=== PATIENT | male | born 1955 | race Caucasian/White ===

== ENCOUNTER 2023-01-21 13:19 | Observation (INO) | payer OTHER ==
[~2023-01-21] VITALS: Ht 182.9 cm; Wt 74.1 kg
[2023-01-21] MEDS ORDERED: FLOMAX0.4 MG PO (13:37)
[2023-01-21 14:19] LABS: BASOPHILS 0.7 % (0-2); EOSINOPHILS 0.2 % (0-6); HEMATOCRIT 48.3 % (35.0-50.0); HEMOGLOBIN 16.2 g/dL (12.0-18.0); LYMPHOCYTES 4.6 % (24-44); MCH 28.6 (27-36); MCHC 33.4 g/dl (30-36); MCV 85.6 fl (81-99); MONOCYTES 6.6 % (0-12); NEUTROPHILS 87.9 % (39-80); PLATELET COUNT 230 K/uL (140-440); RBC 5.64 M/ul (4.3-5.7)
[2023-01-21 14:19] LABS: BILIRUBIN, URINE NEGATIVE (negative); BLOOD/HGB, URINE NEGATIVE (Negative); KETONE, URINE NEGATIVE (Negative); LEUK ESTERASE, URINE NEGATIVE (negative); NITRITE, URINE NEGATIVE (negative); PH, URINE 6.5 (5-7)
[2023-01-21 14:26] LABS: BACTERIA, URINE NONE SEEN /hpf (negative); CASTS, URINE NONE SEEN \\lpf; COLLECTION TYPE, URINE CATH; CRYSTALS, URINE NONE SEEN (0-1+); EPITHELIAL CELLS, URINE 0 /lpf (0-1+); REFLEX CULTURE, URINE No (No); WHITE BLOOD CELLS, URINE 0-1 /HPF (0-5)
[2023-01-21 14:28] LABS: ALBUMIN 4.9 g/dL (3.4-5.0); ALBUMIN/GLOBULIN RATIO 1.58 (1.1-2.4); ANION GAP 12.6 (7-21); BILIRUBIN, TOTAL 0.7 ng/dL (0.2-1.0); BUN/CREATININE RATIO 22.72 (6.0-28.6); CALCIUM 9.4 mg/dL (8.5-10.1); CREATININE, SERUM 0.66 mg/dL (0.70-1.30); POTASSIUM 3.6 mmol/L (3.5-5.1)
[2023-01-21 18:52] LABS: INFLUENZA B NAA NEGATIVE (NEGATIVE); RESPIRATORY SYNCYTIAL VIR NAA NEGATIVE (NEGATIVE)
--- NOTE | 2023-01-21 21:06 | NUR ---
pt ARRIVED TO [place], BROUGHT TO FLOOR BY ED RN X2. pt ORIENTED TO ROOM AND POC FOR SHIFT DISCUSSED, QUESTIONS ANSWERED. IV SITE WNL, SALINE LOCKED BY LUCY GUTIERREZ. BED ALARM ON FOR SAFETY AND CALL LIGHT IN REACH. ADMISSION COMPLETED BY THIS RN. URINAL AND PERSONAL BELONGINGS IN REACH. 2LNC IN PLACE, OCCAS. DRY COUGH NOTED. pt REPORTS ABD PAIN AND NAUSEA, PRIMARY RN MELBA AND LUCY GUTIERREZ AWARE AND TO ASSIST. NO ADDITIONAL NEEDS OR CONCERNS VERBALIZED.
[2023-01-21 21:08] VITALS: BP 171/103
--- NOTE | 2023-01-21 21:30 | NUR ---
ASSESSMENT AND VITAL SIGNS DONE. WATER REFRESHED. CALL LIGHT WITHIN REACH. SCHEDUELED AND PRN MEDICATIONS ADMINISTERED PER ORDER, SEE MAR. NO OTHER NEEDS AT THIS TIME.
--- NOTE | 2023-01-22 00:11 | NUR ---
PATIENT RESTING IN BED WITH EYES CLOSED. RESP OBSERVED. URINAL EMPTIED. CALL LIGHT WITHIN REACH. NO OTHER NEEDS AT THIS TIME.
[2023-01-22 01:37] VITALS: BP 157/94
--- NOTE | 2023-01-22 01:50 | NUR ---
ASSESSMENT AND VITAL SIGNS DONE. PATIENT RESTING IN BED WITH EYES CLOSED. CPOX APPLIED. Pt STILL ON 2LNC. CALL LIGHT WITH IN REACH. NO OTHER NEEDS AT THIS TIME.
[2023-01-22 05:14] LABS: HEMOGLOBIN 14.4 g/dL (12.0-18.0)
[2023-01-22 05:16] LABS: BASOPHILS 0.4 % (0-2); EOSINOPHILS 0.3 % (0-6); HEMATOCRIT 44.5 % (35.0-50.0); LYMPHOCYTES 4.8 % (24-44); MCH 28.2 (27-36); MCHC 32.5 g/dl (30-36); MCV 86.9 fl (81-99); MONOCYTES 1.8 % (0-12); NEUTROPHILS 92.7 % (39-80); PLATELET COUNT 195 K/uL (140-440); RBC 5.12 M/ul (4.3-5.7); RDW 21.8 (10.5-15.0)
[2023-01-22 05:21] LABS: ANION GAP 10.1 (7-21); BUN/CREATININE RATIO 24.61 (6.0-28.6); CREATININE, SERUM 0.65 mg/dL (0.70-1.30); POTASSIUM 4.1 mmol/L (3.5-5.1)
[2023-01-22 05:24] VITALS: BP 139/91
--- NOTE | 2023-01-22 07:20 | NUR ---
RECEIVED PT REPORT FROM RN'S OLIVER. PT IS RESTING, SUPINE, IN BED, EYES CLOSED, BREATHING REGULAR, EVEN, AND NON-LABORED. CALL LIGHT IN REACH.
[2023-01-22] MEDS ORDERED: PREDNISONE20 MG PO (08:20)
[2023-01-22] MEDS ORDERED: AZITHROMYCIN500 MG PO (08:20)
[2023-01-22] MEDS ORDERED: ALBUTEROL2.5 MG/3 M INH (09:26)
[2023-01-22] MEDS ORDERED: VENTOLIN HFA18 GM INH (09:26)
[2023-01-22] MEDS ORDERED: NORVASC2.5 MG PO (09:27)
[2023-01-22] MEDS ORDERED: LOW DOSE ASPIRI81 MG PO (09:27)
[2023-01-22] MEDS ORDERED: VITAMIN C500 M4 PO (09:27)
[2023-01-22] MEDS ORDERED: CELEBREX200 MG PO (09:28)
[2023-01-22] MEDS ORDERED: BUSPIRONE HCL15 MG PO (09:28)
[2023-01-22] MEDS ORDERED: CYMBALTA60 MG PO (09:29)
[2023-01-22] MEDS ORDERED: VITAMIN B-121000 MCG PO (09:29)
[2023-01-22] MEDS ORDERED: VITAMIN D325 MCG PO (09:29)
[2023-01-22] MEDS ORDERED: PEPCID20 MG PO (09:30)
[2023-01-22] MEDS ORDERED: IRON325 M1 PO (09:30)
[2023-01-22] MEDS ORDERED: AIMOVIG AU70 MG/1 ML SUB-Q (09:30)
[2023-01-22] MEDS ORDERED: PROSCAR5 MG PO (09:31)
[2023-01-22] MEDS ORDERED: WIXELA 250-501 EACH INH (09:31)
[2023-01-22] MEDS ORDERED: FOLIC ACID1 MG PO (09:32)
[2023-01-22] MEDS ORDERED: NEURONTIN300 MG PO (09:32)
[2023-01-22] MEDS ORDERED: FLONASE ALLERG9.9 ML NAS (09:32)
[2023-01-22] MEDS ORDERED: VISTARIL25 MG PO (09:33)
[2023-01-22] MEDS ORDERED: COMBIVENT RESPIM4 GM INH (09:33)
[2023-01-22] MEDS ORDERED: XALATAN2.5 ML OU (09:34)
[2023-01-22] MEDS ORDERED: IPRAT-ALBUT 0.5-3 ML INH (09:34)
[2023-01-22] MEDS ORDERED: LAMICTAL100 MG PO (09:34)
[2023-01-22] MEDS ORDERED: SYNTHROID137 MCG PO (09:35)
[2023-01-22] MEDS ORDERED: LIDODERM1 EACH TOP (09:35)
[2023-01-22] MEDS ORDERED: MELATONIN5 M2 PO (09:36)
[2023-01-22] MEDS ORDERED: NARCAN4 MG NAS (09:37)
[2023-01-22] MEDS ORDERED: NITROSTAT0.4 MG SL (09:38)
[2023-01-22] MEDS ORDERED: REFRESH TEARS15 ML OU (09:38)
[2023-01-22] MEDS ORDERED: ONDANSETRON ODT4 MG PO (09:39)
[2023-01-22] MEDS ORDERED: MYSOLINE50 MG PO (09:39)
[2023-01-22] MEDS ORDERED: MAXALT MLT10 MG PO (09:40)
[2023-01-22] MEDS ORDERED: PROPRANOLOL HCL60 M1 PO (09:40)
[2023-01-22] MEDS ORDERED: CRESTOR20 MG PO (09:41)
[2023-01-22] MEDS ORDERED: CO Q-1050 MG PO (09:41)
--- NOTE | 2023-01-22 09:58 | NUR ---
PRAYED FOR PENTECOSTALISM OF STRENGTH AND ABIDING PEACE.
[2023-01-22 10:01] VITALS: BP 134/81
--- NOTE | 2023-01-22 10:02 | NUR ---
MED REC COMPLETE
--- NOTE | 2023-01-22 10:08 | NUR ---
REVIEWED D/C PAPERWORK WITH PT AND ANSWERED QUESTIONS. PT GETTING DRESSED AND WILL USE CALL LIGHT WHEN HE'S READY TO BE WHEELED TO HIS VEHICLE.
--- NOTE | 2023-01-22 10:18 | NUR ---
UR NOTE MCG CHRONIC OBSTRUCTIVE PULMONARY DISEASE: OBSERVATION CARE (ISC) 01/21/23 MET ON ADMIT 01/22/23 MET OBSERVATION DISCHARGE CRITERIA
--- NOTE | 2023-01-23 06:01 | EKG ---
[facility] [address] [place] [address] Signed Sinus tachycardia Rightward axis Pulmonary disease pattern Abnormal ECG No previous ECGs available Confirmed by VIRGINIA LANGLEY MD ([id number]) on 01/23/2023 6:01:43 AM Electronically Signed By: VIRGINIA LANGLEY 01/23/23 0601 PATIENT NAME: CHERELLE CAMACHO JOSE ALEJANDRO Electrocardiogram DATE OF : 51 PHYSICIAN: VIRGINIA LANGLEY REPORT #: [id number] REPORT IS CONFIDENTIAL AND NOT TO BE RELEASED WITHOUT AUTHORIZATION
--- NOTE | 2023-02-08 09:14 | NUR ---
Attempt callback. No answer, voicemail not set up.
== END 2023-01-22 10:32 | disposition home or self-care (01) ==
LOC: ED 13:19 → MS 13:22
PROVIDERS: Emergency Medicine; ADMIT Family Medicine; ATTEND Family Medicine
DX: J44.1 Chronic obstructive pulmonary disease with (acute) exacerbation (principal); R09.02 Hypoxemia; N40.0 Benign prostatic hyperplasia without lower urinary tract symptoms; E03.9 Hypothyroidism, unspecified; Z20.822 Contact with and (suspected) exposure to COVID-19; Z88.0 Allergy status to penicillin; C32.9 Malignant neoplasm of larynx, unspecified
CPT/HCPCS: 36415; 51702; 51798; 71045; 74177; 80048; 80053; 81001; 83880; 85025; 85379; 87502; 93005; 93010; 94640; 94760; 94762; 96372; 96376; 99285-25; A9270; C9803; G0378; J1650; J2405; J7030; J7512; Q9967; U0002